=== PATIENT | female | born 1985 | race Caucasian/White ===

== ENCOUNTER → 2016-02-26 | Outpatient (CLI) | payer OTHER ==
[~2016-02-26] MED LIST: IRON PO; MTR600X PO; OMEG10007 PO; OXYC-57 PO; PRENTAB26 PO; PREVACID PO
[2016-02-26 18:53] LABS: URINE APPEARANCE CLEAR (CLEAR); URINE BILIRUBIN NEG (NEG); URINE COLOR YELLOW; URINE NITRITE NEG (NEG); UROBILINOGEN NEG (NEG)
[2016-02-26 18:58] LABS: MANUAL MICROSCOPIC REQUIRED? NO; REVIEW REQ? NO
== END | disposition home or self-care (01) ==
LOC: C.LABSPEC 18:26
PROVIDERS: ATTEND Obstetrics & Gynecology
DX: O34.219 Maternal care for unspecified type scar from previous cesarean delivery (principal)

== ENCOUNTER → 2016-03-04 | Outpatient (CLI) | payer OTHER ==
[2016-03-04 16:40] LABS: BASO % 0.1 %; BASO ABS # 0.01 K/uL (0-0.2); COMPLETE YES; EOS % 0.5 %; HEMATOCRIT 34.6 % (37-47); IG% 0.2 %; LYMPH % 19.9 %; LYMPH ABS # 2.06 K/uL (1.2-3.4); MEAN CELL VOLUME 86.9 fL (80-100); MEAN CORPUSCULAR HEMOGLOBIN 31.2 pg (25-34); MEAN CORPUSCULAR HGB CONC 35.8 g/dl (32-36); MEAN PLATELET VOLUME 11.5 fL (7.4-10.4); MONO % 3.2 %; NEUT % 76.1 %; PLATELET COUNT 203 K/uL (130-400); RED BLOOD COUNT 3.98 M/uL (4.2-5.4); WHITE BLOOD COUNT 10.37 K/uL (4.8-10.8)
[2016-03-07 00:51] LABS: CHLAMYDIA TRACH RNA*** NOT DETECTED (NOT DETECTED); GC (NEIS GONORRHOEAE)RNA** NOT DETECTED (NOT DETECTED)
== END | disposition home or self-care (01) ==
LOC: C.LAB1850 15:22
PROVIDERS: ATTEND Obstetrics & Gynecology
DX: Z34.90 Encounter for supervision of normal pregnancy, unspecified, unspecified trimester (principal)

== ENCOUNTER → 2016-04-27 | Outpatient (CLI) | payer OTHER ==
[2016-04-27 16:24] LABS: GTGD 50 Grams
== END ==
LOC: C.LAB1850 14:01
PROVIDERS: ATTEND Obstetrics & Gynecology
DX: Z34.82 Encounter for supervision of other normal pregnancy, second trimester (principal)

== ENCOUNTER → 2016-07-20 | Outpatient (CLI) | payer OTHER ==
[2016-07-20 15:49] LABS: HEMATOCRIT 34.1 % (37-47)
[2016-07-20 17:07] LABS: URINE APPEARANCE CLEAR (CLEAR); URINE BILIRUBIN NEG (NEG); URINE COLOR DK YELLOW; URINE EPITHELIAL CELL AUTO >30 /lpf (0-5); URINE NITRITE NEG (NEG); URINE PH 6.5 (4.5-7.5); URINE SPECIFIC GRAVITY 1.023 (1.000-1.030); UROBILINOGEN NEG (NEG)
[2016-07-20 17:15] LABS: MANUAL MICROSCOPIC REQUIRED? NO; REVIEW REQ? NO
[2016-07-20 18:20] LABS: GTGD 50 Grams
== END | disposition home or self-care (01) ==
LOC: C.LAB1850 14:02
PROVIDERS: ATTEND Obstetrics & Gynecology
DX: Z34.83 Encounter for supervision of other normal pregnancy, third trimester (principal); Z29.13 Encounter for prophylactic Rho(D) immune globulin

== ENCOUNTER → 2016-09-14 | Outpatient (CLI) | payer OTHER | END | disposition home or self-care (01) | LOC: C.LABSPEC 14:40 | PROVIDERS: ATTEND Obstetrics & Gynecology | DX: Z34.83 Encounter for supervision of other normal pregnancy, third trimester (principal) ==

== ENCOUNTER 2016-10-09 05:22 | Inpatient (IN) | payer OTHER ==
[2016-10-08 10:39] VITALS: BMI 27.0
--- NOTE | 2016-10-08 10:58 | PAT Medication Instructions ---
Service Date Oct 08, 2016. Current Home Medication List Fish Oil ([place]-3), 1 CAP PO QPM Ibuprofen (Ibuprofen), 600 MG PO Q PRN for Pain Multivit/Min/Iron/Fol Ac/Pren ( Vitamin), 1 TAB PO QPM Medication Instructions For Your Scheduled Surgery - Hold the following medications as scheduled the night before surgery: Fish Oil ([place]-3), 1 CAP PO QPM - Take the following medications as scheduled the night before surgery: Multivit/Min/Iron/Fol Ac/Pren ( Vitamin), 1 TAB PO QPM If you have any questions please call us at [phone] or [phone] or [phone]
[2016-10-08 11:28] LABS: BASO % 0.2 %; BASO ABS # 0.02 K/uL (0-0.2); COMPLETE YES; EOS % 0.5 %; HEMATOCRIT 31.7 % (37-47); IG% 2.2 %; LYMPH ABS # 1.97 K/uL (1.2-3.4); MEAN CELL VOLUME 90.8 fL (80-100); MEAN CORPUSCULAR HEMOGLOBIN 32.4 pg (25-34); MEAN CORPUSCULAR HGB CONC 35.6 g/dl (32-36); MEAN PLATELET VOLUME 10.6 fL (7.4-10.4); MONO % 7.4 %; NEUT % 72.7 %; PLATELET COUNT 159 K/uL (130-400); RED BLOOD COUNT 3.49 M/uL (4.2-5.4); WHITE BLOOD COUNT 11.56 K/uL (4.8-10.8)
--- NOTE | 2016-10-08 13:27 | HISTORY & PHYSICAL EXAMINATION ---
DATE OF ADMISSION: 10/09/2016 ADMITTING DIAGNOSES: 1. Term . 2. Previous section x2. 3. Desired permanent surgical sterilization. ADMISSION HISTORY: The patient is a 30-year-old 3, para 2 with an EDC of 11 October by dates and first trimester ultrasound who is admitted at 39+ weeks gestational age for an elective repeat section. The patient has had 2 previous sections and as such been scheduled for the repeat section. The patient has had a benign course. Her blood type is O negative, antibody negative. She received RhoGAM on the 20 of July. She is hepatitis B negative, rubella immune. She had a normal 1 hour Glucola x2 and a positive third trimester beta strep culture. PAST MEDICAL HISTORY: OBSTETRICAL: As above. FILLER AND TRIMMER: None. MEDICAL: None. SURGICAL: Hernia repair, tonsillectomy, wisdom teeth extraction. ALLERGIES: No known drug allergies. SOCIAL HISTORY: No smoking. FAMILY HISTORY: Noncontributory. REVIEW OF SYSTEMS: As per HPI. ADMISSION PHYSICAL EXAMINATION: GENERAL: Shows a pleasant gravid female in no acute distress. VITAL SIGNS: Blood pressure 110/64, height of 5 feet 3 inches, weight 154 pounds. HEAD, EYES, EARS, NOSE, AND THROAT EXAMINATION: Unremarkable. NECK: Supple. LUNGS: Clear. HEART: With a regular rhythm and rate. ABDOMEN: Gravid, vertex, positive heart tones, estimated weight of 8 pounds. PELVIC EXAMINATION: Shows the cervix to be 1 cm dilated, thick, high and posterior. EXTREMITY EXAMINATION: Shows no deep calf tenderness. NEUROLOGIC: Grossly intact. IMPRESSION: A 30-year-old 3, para 2 at 39+ weeks gestational age for repeat section and bilateral tubal ligation. PLAN: The risks, benefits and alternatives to the surgery have been discussed. While the benefits will be delivery of the , the risks are bleeding, infection, inadvertent injury to bowel or bladder. We have also discussed the permanent surgical sterilization and the reversible nature of the procedure. We have discussed risks associated with that including regret and ectopic . The patient understands all of the above. The permit has been signed and she wishes to proceed.
[~2016-10-09] VITALS: Ht 160 cm; Wt 65.9 kg
[2016-10-09] VITALS (14 sets, daily range): BP systolic 92–108; BP diastolic 51–68; PULSE 57–73; TEMP 36.3–36.8; O2SAT 98–100; Ht 160 cm; Wt 65.9 kg
[~2016-10-09 05:22] MED LIST changes: -IRON PO; -MTR600X PO; -OXYC-57 PO; -PREVACID PO
[2016-10-09] MEDS ORDERED: CEFAZOLIN 2000 MG/60 ML D5W 50 ML IV SCH (06:00)
[2016-10-09] MEDS ORDERED: CEFAZOLIN IV 2,000 MG in DEXTROSE 5% 50ML IV SCH (06:00)
[2016-10-09] MEDS ORDERED: CITRIC ACID/SODIUM CITRATE 15 ML UDC PO SCH (06:00)
[2016-10-09] MEDS ORDERED: LACTATED RINGER'S 1000ML 1,000 ML IV SCH ×3 (06:00→08:23)
[2016-10-09 06:16] LABS: BASO % 0.2 %; BASO ABS # 0.02 K/uL (0-0.2); COMPLETE YES; EOS % 1.1 %; HEMATOCRIT 30.5 % (37-47); IG% 2.1 %; LYMPH % 21.7 %; LYMPH ABS # 2.66 K/uL (1.2-3.4); MEAN CELL VOLUME 92.1 fL (80-100); MEAN CORPUSCULAR HEMOGLOBIN 32.3 pg (25-34); MEAN CORPUSCULAR HGB CONC 35.1 g/dl (32-36); MEAN PLATELET VOLUME 10.2 fL (7.4-10.4); MONO % 7.2 %; NEUT % 67.7 %; PLATELET COUNT 165 K/uL (130-400); RED BLOOD COUNT 3.31 M/uL (4.2-5.4); WHITE BLOOD COUNT 12.27 K/uL (4.8-10.8)
[2016-10-09] MEDS ORDERED: EpHEDrine SULFATE INJ 50 MG/ML AMP ONE (06:29)
[2016-10-09] MEDS ORDERED: PHENYLEPHRINE HCL INJ 10 MG/ML VIAL ONE (06:29)
[2016-10-09] MEDS ORDERED: OXYTOCIN INJ 10 UNITS/ML VIAL ONE (06:29)
[2016-10-09] MEDS ORDERED: MoRPHine SULFATE PF 1 MG/ML 10 ML AMP/VIAL ONE (06:33)
[2016-10-09] MEDS ORDERED: FENTANYL CITRATE INJ 50 MCG/1 ML 2 ML VIAL ONE (06:33)
[2016-10-09] MEDS: LACTATED RINGER'S 1000ML 1,000 ML IV SCH ×2 (06:40→09:14)
--- NOTE | 2016-10-09 07:17 | History & Physical Bridge Note ---
H&P Re-Evaluation Bridge Note: I have examined the patient, reviewed the History & Physical and in the interval since the performance of the History & Physical I have noted the following changes of clinical significance: No changes noted
[2016-10-09] MEDS ORDERED: SUPERCREAM 0.870 % 15GM JAR EXT PRN (08:30)
[2016-10-09] MEDS ORDERED: DIPHTHERIA/TETANUS/PERTUSSIS 0.5 ML SYR/VIAL IM. ONE (08:30)
[2016-10-09] MEDS ORDERED: BENZOCAINE 20% AER SPR 82.5 GM CAN EXT PRN (08:30)
[2016-10-09] MEDS ORDERED: HYDROCORTISONE ACETATE 25 MG SUPP PR PRN (08:30)
[2016-10-09] MEDS ORDERED: LANOLIN OINT EXT PRN ×2 (08:30)
[2016-10-09] MEDS ORDERED: SENNA 8.6 MG TAB PO PRN (08:30)
[2016-10-09] MEDS ORDERED: MAGNESIUM HYDROXIDE SUSP 30 ML UDC PO PRN (08:30)
--- NOTE | 2016-10-09 08:31 | [facility] Post Operative Brief Note ---
Immediate Operative Summary Operative Date Oct 09, 2016. Pre-Operative Diagnosis 1) Term 2) Previous C/S x2 3) Desired Sterilization Post-Operative Diagnosis Same as Preop Procedure(s) Performed 1) Repeat LCT C/S 2) Bilateral tubal ligation Surgeon Dr. Herrmann Field Operations Supervisor Surgeon(s) Dr. Villareal, Dr. Mustafa Estimated Blood Loss 800 Findings Viable female infant, Apgars 8/9; weight 8lbs 3 ozs, gasses pending, normal appearing tubes and ovaries bilaterally. Bilateral segment of fallopian tubes removed and sent for pathology. Fluids (cc crystalloids) 1000 Specimens Cord Blood Placenta Portions of Right and Left Fallopian Tubes Drains Toro to gravity Anesthesia Spinal Complication(s) None Disposition L&D
[2016-10-09] MEDS ORDERED: LACTATED RINGER'S 1000ML 500 ML IV PRN (08:37)
[2016-10-09] MEDS ORDERED: NALOXONE HCL INJ 1 MG in SODIUM CHLORIDE 0.9% 1000ML 1,000 ML IV PRN (08:37)
[2016-10-09] MEDS ORDERED: NALOXONE HCL INJ 0.08 MG in SYRINGE 1.8 ML IV PRN (08:37)
[2016-10-09] MEDS ORDERED: SODIUM CHLORIDE 0.9% 1000ML 1,000 ML IV PRN (08:37)
[2016-10-09] MEDS ORDERED: NO NARCOTICS OR SEDATIVES SCH (08:45)
[2016-10-09] MEDS ORDERED: DiphenhydrAMINE HCL 50 MG/ML VIAL IV PRN ×2 (08:45)
[2016-10-09] MEDS ORDERED: MoRPHine SULFATE PF 1 MG/ML 10 ML AMP/VIAL EPI PRN (08:45)
[2016-10-09] MEDS ORDERED: EpHEDrine SULFATE INJ 50 MG/ML AMP IV PRN ×2 (08:45)
[2016-10-09] MEDS ORDERED: NALBUPHINE HCL INJ 10 MG/ML AMP IV PRN (08:45)
[2016-10-09] MEDS ORDERED: PROMETHAZINE HCL INJ 12.5 MG in SODIUM CHLORIDE 0.9% 50ML 50 ML IV PRN (08:45)
[2016-10-09] MEDS ORDERED: ONDANSETRON INJ 2 MG/ML 2 ML VIAL IV PRN (08:45)
[2016-10-09] MEDS ORDERED: NALOXONE HCL 0.4 MG/1 ML VIAL/CARP IV PRN (08:45)
[2016-10-09] MEDS ORDERED: MEPERIDINE HCL 25 MG/ML CARP IV PRN (08:45)
[2016-10-09] MEDS ORDERED: MoRPHine SULFATE 2 MG/ML CARP IV PRN (08:45)
[2016-10-09] MEDS ORDERED: ATROPINE SULFATE 0.1 MG/ML 5ML SYR IV PRN (08:45)
--- NOTE | 2016-10-09 08:56 | Discharge Instructions ---
Discharge Instructions Date of Service Oct 09, 2016. Admission Reason for Admission: Previous Section Discharge Discharge Diagnosis / Problem: after c section delivery Discharge Goals Goal(s): Routine recovery after delivery Medications Continue Dispensed Medications: supercream, dermaplast, tucks, lansinoh Activity Recommendations Activity Limitations: per Instructions/Follow-up section . Instructions / Follow-Up Instructions / Follow-Up ACTIVITY RECOMMENDATIONS: * Gradual return to full activity over the next 2-3 weeks. * No lifting - nothing heavier than baby over the next 2-3 weeks. * Do not engage in vigorous exercise, sexual activity or sports until cleared by your physician. * Do not drive or operate any motorized equipment until cleared by your physician. * You may shower/bathe daily. MEDICATIONS: For discomfort or pain, you may use Acetaminophen (Tylenol), Ibuprofen (Advil), or Naproxen (Aleve) following the package directions. For constipation you may use Colace following the package directions. BREAST CARE: If you are not breast feeding: * Wear a supportive bra 24 hours a day for one to two weeks. * Avoid stimulating your breasts and nipples as much as possible during the first few weeks after delivery. * When taking a shower, have the warm water hit your back, not breasts. * When your breasts feel full, apply ice packs. Usually three to four times a day helps ease the discomfort. * Take a mild pain medication (Tylenol / Motrin) when you are uncomfortable. If breast feeding: * Use breast milk to lubricate nipples. Lansinoh cream may be used for sore nipples. You do not need to remove cream prior to breast feeding. If using a different brand of cream, check the label for directions regarding removal of cream prior to nursing. * Wear a supportive bra. * If having problems with breasts or breast feeding, call a road consultant or your health care provider. SPECIAL CARE INSTRUCTIONS: When you are discharged from the hospital, it is important for you to follow the instructions listed below: * During the first week at home, you should be able to care for yourself and your baby. In addition, the usual light household activities are encouraged. * Limit your activities to the way you feel. Do not try to clean the house or move furniture. Be sensible. * If you actively engage in sports and have done so up until the time of your delivery, you may resume these activities as soon as you feel able. This may take up to one month or even longer. Use good judgment. * Continue to take your vitamins for at least six weeks after the of your baby. * Your diet need not be limited unless you were on a special diet before your delivery. Breast-feeding mothers need around 2500 calories per day and at least 64-80 ounces of fluid per day (8 to 10 glasses). * You should eat foods from the four major food groups. Crash diets or fad diets are to be avoided. Eating lean meats, fresh fruits and vegetables, low-fat dairy products, high fiber foods and a regular exercise program, will help you get back to your pre- weight without putting your health at risk. * Constipation is sometimes a problem after delivery. Take a mild laxative as needed. If breast feeding, Milk of Magnesia is acceptable to use. You may use a suppository or Fleets enema. * A daily shower or tub bath is suggested. Wash incision daily with warm soapy water and pat dry. It doesn't need to be covered unless drainage is present. * A bloody vaginal discharge will usually continue until around four weeks . A small amount of bleeding may continue for as long as six weeks. Vaginal discharge changes from the bright red bleeding after delivery to pink then brownish and finally yellowish-pink before becoming white and disappearing. * Bleeding may increase with activity. Your first period may come in 4-8 weeks. If you are breast feeding, your period may be delayed even longer. * [place] (sex) can begin whenever both you and your partner feel comfortable and do not have any form of genital infection. It is recommended that you wait at least six weeks for internal and external healing to occur. If you have questions, please talk to your health care practitioner. A condom should be used to prevent infection and . * Foreplay, gentle intercourse and lubrication is very important the first several times to prevent pain. A water-based lubricant such as K-Y jelly or Astroglide may be used. * If you have RH negative blood and your baby is RH positive, you will receive RHOGAM by injection prior to discharge. The nurse will give you a card to keep with you that has the date and place that you received RHOGAM after delivery. * During your care, you had a Rubella screen done to check for the presence of rubella antibodies in your blood. If your test was negative, you will receive a Rubella vaccine prior to discharge. This vaccine may cause a fever, soreness at the injection site and flu-like symptoms. If these symptoms persist, notify your health care practitioner. is not advised for one month after a Rubella vaccine. * Verbalizes understanding of car seat law as reviewed with patient nursing. * Car Seat hand-out given and reviewed with patient by nursing. * Shaken baby information reviewed with patient by nursing. Call you doctor if: * Heavy bleeding (saturating several pads an hour) or passing clots the size of your fist. * A fever >101 degrees F (38.3 degrees C) on two occasions four hours apart and /or chills. * Unusual pain in the pelvic or vaginal areas. * Call the doctor for any increased redness, drainage or swelling around the incision and any pain unrelieved by prescribed pain medication. * "Baby Blues" lasting longer than two weeks. If you have any questions or concerns, call your health care practitioner at . FOLLOW UP VISIT: * Please call the office at to schedule a 6 week examination. It is important you keep this appointment. It is important for you to make arrangements for either yearly or twice yearly check-ups thereafter. Current Hospital Diet Patient's current hospital diet: Discharge Diet Recommended Diet: Regular Diet Procedures Procedures Performed: 1) Repeat LCT C/S 2) Bilateral tubal ligation Pending Studies Studies pending at discharge: no Medical Emergencies . Who to Call and When: Medical Emergencies: If at any time you feel your situation is an emergency, please call [phone] immediately. . Non-Emergent Contact Non-Emergency issues call your: Director Of Corporate Sponsorships . . "Provider Documentation" section prepared by Nadira Mustafa. . VTE Core Measure Inpt VTE Proph given/why not?: SCD's
--- NOTE | 2016-10-09 09:26 | OPERATIVE REPORT ---
DATE OF OPERATION: 10/09/2016 PREOPERATIVE DIAGNOSES: 1. Term . 2. Previous section x2. 3. Desired permanent surgical sterilization. POSTOPERATIVE DIAGNOSIS: Same. PROCEDURE PERFORMED: Repeat low cervical transverse section. SURGEON: Dr. Herrmann. TURFGRASS TECHNICIAN: Dr. Villareal. ANESTHESIA: Spinal. FINDINGS: Viable female with Apgars of 8 and 9 and a weight of 8 pounds 7 ounces. Arterial and venous cord gases are pending. Normal appearing tubes and ovaries bilaterally. Bilateral segment of fallopian tube removed and sent for pathological evaluation. PROCEDURE IN DETAIL: The patient was taken to the operating room and after spinal anesthesia was placed in supine position and draped and prepped in usual fashion. Pfannenstiel type incision through previous surgical scar was made. Underlying subcutaneous tissue was dissected down to the ventral abdominal fascia, which was nicked and opened in a horizontal manner. Preperitoneal fascia was dissected away until the peritoneal cavity was entered and opened in a vertical manner. The peritoneum overlying the inferior margin of the uterus was elevated, opened in a semi-lunar fashion, the inferior margin of which was taken down creating the bladder flap. The uterus was entered sharply and extended in a semilunar fashion manually. Viable female was delivered. Cord was clamped and cut and the baby was passed off to pediatrics who was in attendance for the delivery. Cord gases and cord blood samples were obtained. The placenta was delivered spontaneously and the uterus was exteriorized. The uterine cavity was wiped clean of any residual blood tissue and/or clot. Uterine incision was then closed with 2 layers of 4-0 Vicryl, the first a running locking stitch, the second an imbricating stitch. Hemostasis was achieved. Both adnexa were visualized and were grossly normal. The right fallopian tube was isolated followed to the fimbriated end, a segment of which was elevated, doubly ligated with 0 plain suture, cut and removed from the field. Hemostasis present. In a similar fashion, left fallopian tube was isolated followed to the fimbriated end, a segment of which was elevated, doubly ligated with 0 plain suture, cut and removed from the field. Hemostasis present. The uterus was returned to the pelvic cavity. The pericolic gutters were cleared bilaterally of any blood tissue and/or clot. Uterine incision and both tubal ligation sites were inspected and hemostasis was present. Sponge and needle count was correct. The rectus muscle was then plicated in the midline with a running 2-0 Vicryl stitch. The fascia was closed laterally to the midline from both sides with a running 0 Vicryl suture. Subcutaneous tissue was irrigated with warm saline and the skin incision was closed with a 4-0 Monocryl subcuticular suture. Sterile dressing was applied and the patient was taken to the recovery room in satisfactory condition. I attest to the content of the Intraoperative Record and any orders documented therein. Any exception s are noted below.
--- NOTE | 2016-10-09 10:33 | Anesthesiology Progress Note ---
Anesthesia Post Op Note Date & Time Oct 09, 2016 at 10:32 Notes Mental Status: alert / awake / arousable, participated in evaluation Pt Amnestic to Procedure: Yes Nausea / Vomiting: adequately controlled Pain: adequately controlled Airway Patency, RR, SpO2: stable & adequate BP & HR: stable & adequate Hydration State: stable & adequate Neuraxial Anesthesia: was administered, sensory block is resolving Anesthetic Complications: no major complications apparent c/o mild pruritus; better with benadryl.
[2016-10-09] MEDS: OXYTOCIN INJ 20 UNITS in LACTATED RINGER'S 1000ML 1,000 ML IV SCH ×2 (10:45→20:02)
[2016-10-09] MEDS: SIMETHICONE 80 MG CHEW PO SCH ×3 (12:00→20:06)
[2016-10-09] MEDS: KETOROLAC TROMETHAMINE 30 MG/ML VIAL IV PRN ×2 (12:42→20:07)
[2016-10-10] VITALS (13 sets, daily range): BP systolic 105–114; BP diastolic 59–70; PULSE 68–90; TEMP 36.7–36.8; O2SAT 97–99
[2016-10-10] MEDS: KETOROLAC TROMETHAMINE 30 MG/ML VIAL IV PRN (05:10)
[2016-10-10] MEDS ORDERED: NURSING VERBAL MED ORDER ONE (06:00)
[2016-10-10 06:50] LABS: BASO % 0.1 %; BASO ABS # 0.01 K/uL (0-0.2); COMPLETE YES; EOS % 0.7 %; IG% 0.8 %; LYMPH % 10.9 %; LYMPH ABS # 1.39 K/uL (1.2-3.4); MEAN CORPUSCULAR HEMOGLOBIN 32.5 pg (25-34); MEAN CORPUSCULAR HGB CONC 36.1 g/dl (32-36); MEAN PLATELET VOLUME 10.6 fL (7.4-10.4); MONO % 6.4 %; NEUT % 81.1 %; PLATELET COUNT 145 K/uL (130-400); RED BLOOD COUNT 3.11 M/uL (4.2-5.4); WHITE BLOOD COUNT 12.74 K/uL (4.8-10.8)
--- NOTE | 2016-10-10 07:18 | Progress Note ---
Subjective Oct 10, 2016. Subjective conversation w/ patient, physical exam Ambulation: limited ambulation Voiding: no voiding problems Diet Tolerance: Regular Diet Feeding Type: Breast Feeding Objective Vital Signs Date Time Temp Pulse Resp B/P (MAP) Pulse Ox O2 Delivery O2 Flow Rate FiO2 10/10/16 06:43 18 98 10/10/16 05:45 18 99 10/10/16 04:45 16 98 10/10/16 04:45 36.8 68 18 105/68 (80) 99 Room Air 10/10/16 03:45 18 99 10/10/16 02:45 18 98 10/10/16 01:45 18 99 10/10/16 00:45 18 99 10/09/16 23:45 99 Room Air 10/09/16 23:45 18 99 10/09/16 23:45 36.8 72 18 99/63 (75) 99 Room Air 10/09/16 23:00 18 99 10/09/16 21:45 18 100 10/09/16 20:45 18 100 10/09/16 19:45 100 Room Air 10/09/16 19:45 36.7 60 18 99/68 (78) 100 Room Air 10/09/16 19:45 18 100 10/09/16 18:45 18 100 10/09/16 17:45 18 98 10/09/16 16:45 18 99 10/09/16 15:45 18 99 10/09/16 15:00 99 Room Air 10/09/16 15:00 36.3 57 18 92/51 (65) 99 Room Air 10/09/16 14:45 18 99 10/09/16 13:45 18 100 10/09/16 13:45 36.4 66 18 98/63 (75) 100 Room Air 10/09/16 12:45 16 99 10/09/16 12:45 67 16 108/66 (80) 99 Room Air 10/09/16 11:45 36.4 73 18 99/63 (75) 99 Room Air 10/09/16 11:45 100 Room Air 10/09/16 11:45 18 100 Physical Exam General Appearance: WELL-APPEARING, NO APPARENT DISTRESS Respiratory/Chest: lungs clear Cardiovascular: regular rate, rhythm Fundus: Firm, Non-Tender Incision Description: Clean, Dry & Intact Extremities: no calf tenderness Laboratory Results Last 24 Hours Test 10/10/16 06:20 White Blood Count 12.74 K/uL Red Blood Count 3.11 M/uL Hemoglobin 10.1 g/dL Hematocrit 28.0 % Mean Corpuscular Volume 90.0 fL Mean Corpuscular Hemoglobin 32.5 pg Mean Corpuscular Hemoglobin Concent 36.1 g/dl Platelet Count 145 K/uL Mean Platelet Volume 10.6 fL Neutrophils (%) (Auto) 81.1 % Lymphocytes (%) (Auto) 10.9 % Monocytes (%) (Auto) 6.4 % Eosinophils (%) (Auto) 0.7 % Basophils (%) (Auto) 0.1 % Neutrophils # (Auto) 10.33 K/uL Lymphocytes # (Auto) 1.39 K/uL Monocytes # (Auto) 0.82 K/uL Eosinophils # (Auto) 0.09 K/uL Basophils # (Auto) 0.01 K/uL RDW Standard Deviation 46.9 fL RDW Coefficient of Variation 14.2 % Immature Granulocyte % (Auto) 0.8 % Immature Granulocyte # (Auto) 0.10 K/uL Assessment and Plan Problem List Surgical Problems: (1) Previous delivery, antepartum condition or complication Status: Acute Post-Op Day#: 1 Continue Routine Care: - discussed surgery and findings with patient - begin ambulation - routine care - doing well
[2016-10-10] MEDS ORDERED: MTR600X PO (07:22)
[2016-10-10] MEDS ORDERED: OXYC-57 PO (07:22)
[2016-10-10] MEDS ORDERED: KETOROLAC TROMETHAMINE 30 MG/ML VIAL IV. PRN ×2 (08:15→13:30)
[2016-10-10] MEDS ORDERED: DiphenhydrAMINE HCL 50 MG/ML VIAL IV PRN ×2 (08:30→13:30)
[2016-10-10] MEDS ORDERED: OXYCODONE/ACETAMINOPHEN 5-325 TAB PO PRN ×3 (08:30→13:30)
[2016-10-10] MEDS ORDERED: PROMETHAZINE HCL INJ 25 MG in SODIUM CHLORIDE 0.9% 50ML 50 ML IV PRN ×2 (08:30→13:30)
[2016-10-10] MEDS ORDERED: ONDANSETRON INJ 2 MG/ML 2 ML VIAL IV PRN ×2 (08:30→13:30)
[2016-10-10] MEDS: FERROUS SULFATE 325 MG TAB PO SCH (08:33)
[2016-10-10] MEDS: PRENATAL VITAMIN TAB PO SCH (08:33)
[2016-10-10] MEDS: SIMETHICONE 80 MG CHEW PO SCH ×4 (08:33→20:17)
[2016-10-10] MEDS: OXYCODONE/ACETAMINOPHEN 5-325 TAB PO PRN ×3 (09:50→20:19)
[2016-10-10] MEDS: IBUPROFEN 600 MG TAB PO PRN ×3 (09:50→20:19)
[2016-10-10] MEDS ORDERED: DC INTRASPINAL MORPHINE SCH (13:30)
[2016-10-10] MEDS ORDERED: BISACODYL 5 MG TABEC PO ONE (22:00)
[2016-10-11] MEDS ORDERED: BISACODYL 5 MG TABEC ONE (01:04)
[2016-10-11] MEDS: OXYCODONE/ACETAMINOPHEN 5-325 TAB PO PRN ×2 (01:07→07:06)
[2016-10-11] MEDS: IBUPROFEN 600 MG TAB PO PRN ×2 (01:08→07:07)
[2016-10-11 06:47] LABS: HEMATOCRIT 28.8 % (37-47)
--- NOTE | 2016-10-11 07:16 | Progress Note ---
Subjective Oct 11, 2016. Subjective conversation w/ patient, physical exam, lab review Ambulation: ambulating normally Voiding: no voiding problems Passing Gas: Yes Diet Tolerance: Regular Diet Lochia: Small Feeding Type: Breast Feeding Pain: controlled with oral pain meds Objective Vital Signs Date Time Temp Pulse Resp B/P (MAP) Pulse Ox O2 Delivery O2 Flow Rate FiO2 10/10/16 23:15 Room Air 10/10/16 23:15 36.7 72 16 110/65 (80) 97 Room Air 10/10/16 20:15 Room Air 10/10/16 16:45 98 Room Air 10/10/16 16:45 36.7 68 18 111/59 (76) 98 Room Air 10/10/16 09:00 18 97 10/10/16 08:00 18 98 10/10/16 07:35 97 Room Air 10/10/16 07:35 36.8 90 18 114/70 (85) 97 Room Air Physical Exam General Appearance: WELL-APPEARING, WD/WN, NO APPARENT DISTRESS Abdomen: non tender, soft Fundus: Firm, Non-Tender, Relation to Umbilicus (at u) Incision Description: Clean, Dry & Intact Extremities: non-tender, normal inspection Laboratory Results Last 24 Hours Test 10/11/16 06:36 Hemoglobin 10.1 g/dL Hematocrit 28.8 % Assessment and Plan Problem List Surgical Problems: (1) Previous delivery, antepartum condition or complication Status: Acute Post-Op Day#: 2 Continue Routine Care: Doing well. Would like d/c. Instructions given.
[2016-10-11] MEDS: FERROUS SULFATE 325 MG TAB PO SCH (07:49)
[2016-10-11] MEDS: PRENATAL VITAMIN TAB PO SCH (07:49)
[2016-10-11] MEDS: SIMETHICONE 80 MG CHEW PO SCH (07:49)
[2016-10-11 08:00] VITALS: BP 104/69; PULSE 63; TEMP 36.6
[2016-10-11] MEDS ORDERED: BISACODYL 10 MG SUPP PR PRN (08:30)
[2016-10-11 10:19] VITALS: BP_DIAS 69; PULSE 63; TEMP 36.6
--- NOTE | 2016-10-12 08:16 | DISCHARGE SUMMARY ---
ADMITTING DIAGNOSES: 1. Term . 2. Previous section x2. 3. Desired permanent surgical sterilization. DISCHARGE DIAGNOSES: Same. PROCEDURES PERFORMED: 1. Repeat low cervical transverse section. 2. Bilateral tubal ligation. DISCHARGE MEDICATIONS: 1. Percocet 5/325 1-2 p.o. q. 4-6 hours p.r.n. pain. 2. Motrin 600 mg p.o. q. 6 hours p.r.n. pain. ADMISSION HISTORY: The patient is a 30-year-old 3, para 2 with an EDC of 11 October by dates and first trimester ultrasound who is admitted at 39+ weeks gestational age for an elective repeat section with bilateral tubal ligation. The patient has had 2 previous sections and as such been scheduled for a repeat section. The patient has had a benign course. Her blood type is O negative, antibody negative. She received RhoGAM on 20 July. She is hepatitis B negative, rubella immune. She had a normal 1 hour Glucola x2 and a positive third trimester beta strep culture. PHYSICAL EXAMINATION: GENERAL: Admission physical shows a gravid female in no acute distress. VITAL SIGNS: Blood pressure 110/64, height of 5 feet 3 inches and weight of 154 pounds. HEENT: Unremarkable. NECK: Supple. LUNGS: Clear. HEART: With a regular rhythm and rate. ABDOMEN: Gravid, vertex, positive heart tones, estimated weight of 8 pounds. PELVIC: Shows the cervix to be 1 cm dilated, thick high and posterior. EXTREMITIES: Shows no deep calf tenderness. NEUROLOGIC: Grossly intact. ADMISSION LABORATORY VALUES: Showed an H&H of 11.3 and 31.7. HOSPITAL COURSE: On day of admission, the patient was taken to the operating room where she underwent the above listed procedures. Operative findings showed a viable female with Apgars of 8 and 9 and a weight of 8 pounds 7 ounces, normal appearing tubes and ovaries bilaterally. Bilateral segment of fallopian tube was removed and sent for pathological evaluation. Postoperatively, the patient did well. Toro catheter was removed on the first postoperative day. H&H came back at 10.1 and 28.0. On the second postoperative day, the patient was ambulating and tolerating a regular diet. She was discharged home with the routine discharge instructions and the prescriptions for the medications as listed as above. She will follow up in the office in 2 weeks' time for a postoperative check but as always she has been instructed to call with questions, problems or difficulties.
== END 2016-10-11 10:30 | disposition home or self-care (01) | DRG 766 ==
LOC: C.LD 05:22 → EDSTATUS 07:09 → C.OBG 11:48
PROVIDERS: ADMIT Obstetrics & Gynecology; ATTEND Obstetrics & Gynecology
PROC: 0UB70ZZ Excision of Bilateral Fallopian Tubes, Open Approach (ICD-10-PCS; principal; 2016-10-09 07:30)
PROC: 10D00Z1 Extraction of Products of Conception, Low, Open Approach (ICD-10-PCS; principal; 2016-10-09 07:30)
DX: O99.02 Anemia complicating childbirth (principal); O90.89 Other complications of the puerperium, not elsewhere classified; Z37.0 Single live birth; D64.9 Anemia, unspecified; O99.824 Streptococcus B carrier state complicating childbirth; Z67.41 Type O blood, Rh negative; O26.893 Other specified pregnancy related conditions, third trimester; Z30.2 Encounter for sterilization; O34.219 Maternal care for unspecified type scar from previous cesarean delivery; N85.8 Other specified noninflammatory disorders of uterus; Z3A.39 39 weeks gestation of pregnancy; L29.9 Pruritus, unspecified; Z79.1 Long term (current) use of non-steroidal anti-inflammatories (NSAID); Z79.899 Other long term (current) drug therapy